=== PATIENT | male | born 1995 | race African-American/Black ===

== ENCOUNTER 2022-08-09 20:50 | Emergency (ER) | payer OTHER, SELFPAY ==
[2022-08-09 21:31] VITALS: BP 136/89; PULSE 69; RESP 18; TEMP 36.7; O2SAT 98; BMI 37.3
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
== END 2022-08-09 23:59 | disposition home or self-care (01) ==
PROVIDERS: Emergency Provider Emergency Medicine Emergency Medical Services
DX: S51.851A Open bite of right forearm, initial encounter (principal); Y04.1XXA Assault by human bite, initial encounter; Y93.9 Activity, unspecified; Y92.9 Unspecified place or not applicable; Y99.0 Civilian activity done for income or pay
CPT/HCPCS: 99282